=== PATIENT | female | born 1940 | race Two or more races ===

== ENCOUNTER 2024-08-28 20:38 | Emergency (ER) | payer MEDICARE, MEDICAID, SELFPAY ==
[2024-08-28 20:59] VITALS: BP 119/67; PULSE 70; RESP 20; TEMP 36.6; O2SAT 97
--- NOTE | 2024-08-28 20:59 | EKG_ITS ---
[facility] Test Date: 2024-08-28 Pat Name: SAUD COPELAND Department: Room: - Gender: Female Complaint Evaluation Supervisor: : 1940 Requested By: ED Temporary Provider Order Number: [id number] Reading MD: ED Temporary Provider Measurements Intervals [place] Rate: 68 P: 50 WI: 177 QRS: -64 QRSD: 156 T: 84 QT: 431 QTc: 458 Interpretive Statements ELECTRONIC VENTRICULAR PACEMAKER ABNORMAL RHYTHM ECG No previous ECG available for comparison /store/S0/[id number].pdf
--- NOTE | 2024-08-28 21:22 | XR_ITS ---
Examination: PA chest single view TECHNIQUE: Upright PA chest single view Date and time: August 28, 2024 2158 hours INDICATIONS: Altered mental status dizziness today. FINDINGS: Mild prominence of ventricle Cardiac leads satisfactory position. No pneumonia or pulmonary edema IMPRESSION: No active disease.
--- NOTE | 2024-08-28 21:22 | XR_ITS ---
Examination: CT brain head without contrast. 2-D sagittal coronal reconstructions Date and time of exam:August 28, 2024 1016 hours Comparison June 28, 2022 INDICATIONS: Headaches beginning 2 days ago CTDI: vol (mGy):46.8 DLP: (mGycm):880 Technique: Multiple CT axial sections of the brain have been obtained, 5 mm slice thickness. Contrast has not been administered. 2-D sagittal, coronal reconstructions have been obtained Low dose protocols were performed. One or more of the following dose reduction techniques were used; automated exposure control, adjustment of the mA and/or KV according to patient size, use of iterative reconstruction technique. Findings: No significant ventricular enlargement. Intra-axial or extra-axial hemorrhage density is not seen. No mass effect or midline shift Basal cisterns are not remarkable. Fourth ventricle is midline. Cranial vault intact. Impression: Negative for acute hemorrhage, mass effect or midline shift Pansinusitis, including acute right maxillary sinusitis
--- NOTE | 2024-08-28 21:33 | PD.EDHA ---
ED Headache RME/HPI General Chief Complaint: Headache Stated Complaint: HEADACHE, CONFUSED Time Seen by Provider: 08/28/24 21:22 Arrival date/time: 08/28/24 20:38 84F with history of pacemaker (doesn't know for what), DM, and dementia presents to ED with son for 2 days of PALOMO starting around the early evening time, unclear exactly when. Possible AMS, blurry vision, and dizziness. Also cough started today. Limitations: no limitations Related Data Previous Rx's ?Medication ?Instructions ?Recorded amoxicillin 875 mg-potassium 1 tab PO BID 7 days #14 tabs 08/28/24 clavulanate 125 mg tablet meclizine 25 mg tablet 25 mg PO BID PRN dizziness #14 tabs 08/28/24 Allergies Allergy/AdvReac Type Severity Reaction Status Date / Time No Known Allergies Allergy Verified 06/28/22 09:35 Review of Systems Review of Systems Systems Reviewed: All systems reviewed, normal except as documented Constitutional Constitutional: Reports system reviewed and no additional complaints, except as documented, Reports as per HPI, Denies fever(s) and Reports headache(s) Eyes Eyes: Reports as per HPI and Reports blurry vision ENT Ears, Nose, Mouth, and Throat: Reports as per HPI, Denies disequilibrium, Reports headache(s) and Reports vertigo Cardiovascular Cardiovascular: Reports system reviewed and no additional complaints, except as documented, Denies chest pain and Denies dyspnea Respiratory Respiratory: Reports system reviewed and no additional complaints, except as documented, Reports as per HPI, Reports cough and Denies dyspnea Gastrointestinal Gastrointestinal: Reports system reviewed and no additional complaints, except as documented, Denies abdominal pain, Denies nausea and Denies vomiting Neurologic Neurologic: Reports system reviewed and no additional complaints, except as documented, Denies confusion, Denies disequilibrium, Reports headache(s) and Reports vertigo Psychiatric Psychiatric: Denies confusion Past Medical History Social History SMOKING STATUS: Never smoker ED Exam General Limitations: Present no limitations General appearance: Present alert and in no apparent distress Head Head exam: Present atraumatic Eye Eye exam: Present normal appearance, PERRL and EOMI ENT ENT exam: Present normal exam, normal oropharynx and mucous membranes moist Neck Neck exam: Present normal inspection, full ROM and trachea midline Chest Chest inspection: Present normal inspection and symmetric chest wall rise Respiratory Respiratory exam: Present normal lung sounds bilaterally Cardiovascular Cardiovascular exam: Present regular rate, normal rhythm and normal heart sounds Abdominal Exam Abdominal exam: Present soft and normal bowel sounds Extremities Exam Extremities exam: Present normal inspection and full ROM Back Exam Back exam: Present normal inspection and full ROM Neurological Exam Neurological exam: Present alert, oriented X3 and CN II-XII intact Psychiatric Psychiatric exam: Present normal affect and normal mood Skin Skin exam: Present warm, dry, intact and normal color Course Quality Measures none Orders Category Date Time Status EKG (ED ONLY) *Do not use* NOW Care 08/28/24 20:59 Completed Fingerstick [Bedside Blood Glucose] NOW Care 08/28/24 20:[address] head/brain wo con Stat Exams 08/28/24 21:22 Completed EKG (ED Only) Stat Exams 08/28/24 20:59 Draft EKG (ED Only) Urgent Exams 08/28/24 20:59 Ordered XR chest 1V portable Stat Exams 08/28/24 21:22 Completed B-Type Natriuretic Peptide Stat Lab 08/28/24 21:42 Completed CBC Stat Lab 08/28/24 21:42 Completed Comprehensive Metabolic Panel Stat Lab 08/28/24 21:42 Completed Drug Screen,Urine Stat Lab 08/28/24 21:29 Completed Magnesium Stat Lab 08/28/24 21:42 Completed Partial Thromboplastin Time Stat Lab 08/28/24 21:42 Completed Prothrombin Time with INR Stat Lab 08/28/24 21:42 Completed Troponin I Stat Lab 08/28/24 21:42 Completed Urinalysis Stat Lab 08/28/24 21:29 Completed Amoxicillin/Pot Clav 875 [Augmentin 875] Med 08/28/24 23:50 Discontinued 1 tab PO X1 ONE Meclizine HCl [Antivert] Med 08/28/24 21:22 Discontinued 25 mg PO X1 ONE Vital Signs Vital signs: Vital Signs Temperature 98 F 08/28/24 20:59 Pulse Rate 70 08/28/24 20:59 Respiratory Rate 20 08/28/24 20:59 Blood Pressure 119/67 08/28/24 20:59 Pulse Oximetry (%) 97 08/28/24 20:59 Oxygen Delivery Method Room Air 08/28/24 20:59 O2 at 97% on RA and WNLs Headache MDM Narrative MDM Narrative:: 84F with history of pacemaker (doesn't know for what), DM, and dementia presents to ED with son for 2 days of PALOMO starting around the early evening time, unclear exactly when. Possible AMS, blurry vision, and dizziness. Also cough started today. Physical exam reveals normal pupil response and EOM. CN II-XII grossly intact. Gait normal. Pronator test negative. Normal WOB. Speech normal. Patient is afebrile, calm, and alert. EKG is paced. BS is 187. CXR normal. Normal trop. No leukocytosis. CMP unremarkable. CT reveals pansinusitis. Meds and counseling center manager given. Meclizine improved dizziness. Patient data External records reviewed:: [facility] previous records Clinical information provided by:: patient and family Social determinants that could affect healthcare access:: none Patient has the following chronic illnesses:: history of pacemaker (doesn't know for what), DM, and dementia How is presenting disease/condition affected by chronic disease/condition?: exacerbated by Evaluation data The following diagnostics were reviewed and interpreted by me:: lab results, radiology exam(s) and EKG tracing(s) Lab and/or radiology exams considered but not ordered:: ordered Interpretation Summary: above Medications / Prescriptions Medications or Prescriptions considered but not ordered:: ordered Medication administrations:: Medication Administration History Discontinued Medications Amoxicillin/Clavulanate Potassium (Amoxicillin/Pot Clav 875 Tablet) 1 tab PO X1 ONE Stop: 08/28/24 23:51 Last Admin: 08/28/24 23:58 Dose: 1 tab Documented By: ROXANA Meclizine HCl (Meclizine Hcl 25 Mg Tablet) 25 mg PO X1 ONE Stop: 08/28/24 21:23 Last Admin: 08/28/24 22:20 Dose: 25 mg Documented By: ROXANA above Consultations Consultation(s) initiated? (list below): No Diagnosis Differential diagnosis headache: migraine, tension headache, subarachnoid hemorrhage, headache, meningitis, sinusitis and postconcussion syndrome Most likely diagnosis given after review of the tests above:: sinusitis Admission Indicated Admission indicated?: not indicated Admission Request Was there a request for admission?: No Disposition Plan Disposition Plan: Discharge Discharge Attestation Discharge Attestation: The patient and all family members were given an opportunity to ask questions and understood the discharge instructions. Discharge instructions specifically effects, indications for sooner follow up or return to the emergency department, and the expected course of current diagnosis. Patient condition: Stable Discharge Plan Plan Patient Disposition: HOME (Self Care) Discharge Disposition comment: Stable Prescriptions/Referrals Prescriptions/Med Rec: New amoxicillin-pot clavulanate 875-125 mg tablet 1 tab PO BID 7 Days Qty: 14 0RF meclizine 25 mg tablet 25 mg PO BID PRN (Reason: dizziness) Qty: 14 0RF Referrals: Mook Mathews [Primary Care Provider] - In 1 week Problem List Clinical Impression: Sinusitis Patient/Caregiver Discharge Instructions Education Materials: ED Sinusitis (Antibiotic Treatment) Additional Instructions: Please follow-up with PCP within 24-48 hours and return immediately if symptoms worsen. Print Language: Kittitian Stand Alone Forms: Patient Portal Info Letter PA/ELECTRIC MOTOR AND GENERATOR ASSEMBLER Supervising Physician JOSH/SITA Supervising Physician: Dr. Shea
[2024-08-28 21:59] LABS: Collection Type, Urine Clean Catch
[2024-08-28 21:59] LABS: Basophils # (Auto) 0.0 Thou/mm3 (0.0-0.2); Eosinophils # (Auto) 0.2 Thou/mm3 (0.0-0.5); Eosinophils % (Auto) 4 % (0-10); Lymphocytes % (Auto) 34 % (10-50); Mean Corpuscular Volume 94 fL (80-100); Monocytes # (Auto) 0.5 Thou/mm3 (0.0-0.8); Monocytes % (Auto) 10 % (0-12); Neutrophils # (Auto) 2.5 Thou/mm3 (1.8-7.7); Nucleated Red Blood Cell # 0.00 Thou/mm3 (0.00-0.00); Nucleated Red Blood Cell % 0 /100 WBC (0)
[2024-08-28 22:01] LABS: Basophils % (Auto) 0 % (0-2.5); Hematocrit 35.3 % (36.0-46.0); Hemoglobin 11.6 g/dL (12.0-16.0); Immature Granulocytes Auto 0.00 Thou/mm3 (0.00-0.00); Lymphocytes # (Auto) 1.6 Thou/mm3 (1.0-4.8); Mean Corpuscular HGB Conc 32.9 g/dl (31.0-37.0); Mean Corpuscular Hemoglobin 30.9 pg (25.0-35.0); Neutrophils % (Auto) 52 % (37-80); Platelet Count 89 Thou/mm3 (140-440); RDW Standard Deviation 46.8 fL (36.4-46.3); Red Blood Count 3.75 Miln/mm3 (4.00-5.20); White Blood Count 4.8 Thou/mm3 (3.6-11.0)
[2024-08-28 22:19] LABS: Bacteria,Urine Rare; Bilirubin,Urine Negative (Negative); Blood,Urine Negative (Negative); Clarity,Urine Clear (Clear/Hazy); Color,Urine Lt-Yellow (Lt Yel-Yel); Glucose, Urine Negative (Negative); Ketones,Urine Negative (Negative); Leukocyte Esterase,Urine Positive (Negative); Nitrite,Urine Negative (Negative); PH,Urine 6.0 (5.0-7.0); Protein,Urine Negative (Neg - Trace); RBC,Urine 2 /hpf (0-3); Specific Gravity,Urine 1.024 (1.001-1.035); Squamous Epithelial Cell,Urine 5 /hpf (0-5); Urobilinogen,Urine Negative mg/dL (0.0-1.0); WBC,Urine 10 /hpf (0-5)
[2024-08-28 22:19] LABS: INR 1.1 (0.9-1.3); Partial Thromboplastin Time 30.8 Seconds (22.0-36.0); Prothrombin Time 11.7 Seconds (9.0-12.2)
[2024-08-28] MEDS: MECLIZINE HCL 25 MG TABLET PO (22:20)
[2024-08-28 22:22] LABS: B-Type Natriuretic Peptide 64 pg/mL (0-100)
[2024-08-28 22:25] LABS: Alanine Aminotransferase 21 U/L (10-49); Albumin, Serum 4.1 gm/dL (3.4-4.8); Albumin/Globulin Ratio 1.7 (1.2-2.2); Alkaline Phosphatase 81 U/L (46-116); Anion Gap 7 (7-16); Aspartate Amino Transferase 35 U/L (0-34); BUN/Creatinine Ratio 22 Ratio (12-20); Bilirubin,Total 0.5 mg/dL (0.3-1.2); Blood Urea Nitrogen 29 mg/dL (9-23); Calcium 8.7 mg/dL (8.3-10.6); Calcium (Corrected) 8.7 mg/dL (8.5-10.1); Carbon Dioxide 30.7 mMol/L (20.0-31.0); Chloride 102 mMol/L (98-107); Creatinine (Component) 1.3 mg/dL (0.6-1.3); Globulin 2.4 gm/dL (2.3-3.5); Glucose 184 mg/dL (74-106); Magnesium 1.8 mg/dL (1.6-2.6); Osmolality,Calculated 290 (275-295); Potassium 4.7 mMol/L (3.4-5.1); Sodium 140 mMol/L (136-145); Total Protein 6.5 gm/dL (5.7-8.2); Troponin I < 0.020 ng/mL (0.0-0.045); eGFR 41 See Note
[2024-08-28 22:28] LABS: Amphetamine/Methamp Scrn,U Negative (Negative); Barbiturate Screen,Urine Negative (Negative); Benzodiazepines Screen,Urine Negative (Negative); Benzoylecgonine Screen, Ur Negative (Negative); Fentanyl Screen,Urine Negative (Negative); Opiate Screen,Urine Negative (Negative); THC Screen,Urine Negative (Negative)
[2024-08-28 23:27] VITALS: BP 139/68; PULSE 64; RESP 18; TEMP 36.6; O2SAT 98
[2024-08-28] MEDS: AMOXICILLIN/POT CLAV 875 TABLET 1 TAB PO (23:58)
[2024-08-29] VITALS: RESP 16
== END 2024-08-29 00:01 | disposition home or self-care (01) ==
PROVIDERS: Physician Assistant; Emergency Provider Emergency Medicine; PCP Internal Medicine
DX: J32.4 Chronic pansinusitis (principal); R94.31 Abnormal electrocardiogram [ECG] [EKG]; J01.00 Acute maxillary sinusitis, unspecified; R42 Dizziness and giddiness; Z95.0 Presence of cardiac pacemaker; E11.9 Type 2 diabetes mellitus without complications; F03.90 Unspecified dementia, unspecified severity, without behavioral disturbance, psychotic disturbance, mood disturbance, and anxiety
CPT/HCPCS: 36415; 70450; 71045; 80053; 80307; 81001; 83735; 83880; 84484; 85025; 85610; 85730; 93005; 99284; A9270

== ENCOUNTER 2024-12-29 12:06 | Emergency (ER) | payer MEDICARE, MEDICAID, SELFPAY ==
[2024-12-29 12:56] VITALS: BP 132/72; PULSE 74; RESP 18; TEMP 36.6; O2SAT 95; BMI 27.8
--- NOTE | 2024-12-29 13:06 | PD.EDFALL ---
ED Fall Injury RME/HPI General Chief Complaint: Fall Stated Complaint: R RIB PAIN AND HEAD PAIN POST FALL Time Seen by Provider: 12/29/24 13:06 Arrival date/time: 12/29/24 12:06 RME / HPI RME / HPI Narrative: 84-year-old female who does not take blood thinners, however does have missing teeth, dementia, at her cognitive baseline, is complaining of mild headache, laceration to her left forehead and right sided rib pain after a ground-level trip and fall over a side. Denies any vomiting, loss of consciousness, dizziness, shortness of breath, vomiting. Related Data Previous Rx's ?Medication ?Instructions ?Recorded meclizine 25 mg tablet 25 mg PO BID PRN dizziness #14 tabs 08/28/24 Allergies Allergy/AdvReac Type Severity Reaction Status Date / Time No Known Allergies Allergy Verified 12/29/24 12:10 ED Exam Narrative Physical exam: Constitutional: Patient alert, oriented, in no acute distress. Head/Face: Normocephalic, atraumatic. Scalp atraumatic. No hematomas or step-offs. Face symmetric. No midface instability. No raccoon eyes bilaterally. No love signs bilaterally. Eyes: Conjunctiva clear bilaterally. Sclera anicteric bilaterally. Pupils equal, round, and reactive to light bilaterally. Extraocular movements intact bilaterally. No hyphema. Ears: External ears normal. TMs grossly intact. No hemotympanum bilaterally. No otorrhea. No mastoid tenderness. Nose: Septum midline. No rhinorrhea.No septal hematoma. Mouth/Throat: Oropharynx clear. Moist mucous membranes. Uvula midline. No tonsillar edema or exudate. No peritonsillar fullness. No trismus. Handling secretions without difficulty. No stridor. Missing teeth. Neck: Trachea midline. Supple. No JVD. No midline tenderness or step-offs. No nuchal rigidity. Chest: Symmetric chest rise. Breath sounds equal bilaterally. Positive tenderness to right ribs at the posterior axillary line. No deformity, or crepitus. Cardiovascular: RRR. Normal S1/S2. No murmurs or rubs. Radial pulses intact bilaterally. Abdomen: Soft. Non-distended. Non-tender throughout. No pulsatile mass. No rebound or guarding. Pelvis: Stable and non-tender to compression. No deformity. Back: No CVA tenderness bilaterally. No midline spinal tenderness. No step-offs. Upper Extremities: No gross deformities. No focal motor or sensory deficits bilaterally. Lower Extremities: No gross deformities. No focal motor or sensory deficits bilaterally. Neuro: Alert and oriented. Speech normal. CN II?XII grossly intact. GCS 15. Skin: Warm, dry, normal color. +1 cm superficial abrasion noted to left forehead well-approximated. Course Quality Measures none Orders Category Date Time Status Incentive Spirometry Treatment NOW Care 12/29/24 16:42 Active Wound Care NOW Care 12/29/24 16:[address] cervical spine wo con Stat Exams 12/29/24 13:[address] head/brain wo con Stat Exams 12/29/24 13:07 Completed XR ribs RT min 3V w CXR1V Stat Exams 12/29/24 13:07 Completed Lidocaine 5% Patch Med 12/29/24 16:44 Discontinued 1 patch TOP X1 ONE TET,DIP/PERT AC (Adult)-Tdap [Boostrix Adult (Tdap) Med 12/29/24 16:43 Discontinued Vacc] 0.5 ml IMI .ONCE ONE Vital Signs Vital signs: Vital Signs Temperature 97.9 F 12/29/24 12:56 Pulse Rate 74 12/29/24 12:56 Respiratory Rate 18 12/29/24 12:56 Blood Pressure 132/72 H 12/29/24 12:56 Pulse Oximetry (%) 95 12/29/24 12:56 Oxygen Delivery Method Room Air 12/29/24 12:56 Fall MDM Narrative MDM Narrative:: MDM This patient sustained a fall that appears to be primarily mechanical in nature and not due to a serious acute medical condition. Other than what is mentioned in the diagnosis, no serious injury has been identified. Neuro exam is non-focal. Doubt acute nerve root syndrome, acute cord syndrome, intracranial hemorrhage, or cervical spine fracture/subluxation. Patient remains neurologically intact without focal deficit. CT brain and C spine without acute intracranial abn f/x or dislocation Concern for soft tissue injury (contusion, strain, or sprain) however can not exclude occult f/x or dislocation of ribs. CXR without gross fx or dislocation or acute cardiopulmonary abn or PTX. Plan for incentive spirometer Thorough head-to-toe primary and secondary surveys have been performed, and the patient is felt to be at very low risk for delayed serious injury. The patient has been instructed to return immediately for new or unexpected symptoms. Symptomatic treatment provided and follow-up with PMD in 1?2 days recommended. Strict ER return precautions advised. A discussion was held regarding home safety measures and the importance of arranging further evaluation with the patient?s primary care provider in the near future to reduce fall risk. The patient has demonstrated the ability to ambulate safely since the initial fall. Concern for abrasion vs superficial laceration which now has a scab on it, they are declining wound irrigation or repair with dermabond at this time however it is well approximated, plan for continued wound care prn, plan to update tdap Patient data External records reviewed:: [facility] previous records Clinical information provided by:: patient and family Social determinants that could affect healthcare access:: none Patient has the following chronic illnesses:: As noted How is presenting disease/condition affected by chronic disease/condition?: no chronic disease Evaluation data The following diagnostics were reviewed and interpreted by me:: radiology exam(s) Lab and/or radiology exams considered but not ordered:: Additional Labs and radiology considered, but not ordered as they were not clinically indicated at this time. Interpretation Summary: No acute traumatic abnormality Medications / Prescriptions Medications or Prescriptions considered but not ordered:: I considered prescription management (both outpatient prescriptions AND drug treatment in the ER) and decided that this was necessary and was prescribed as charted. Medication administrations:: Medication Administration History Discontinued Medications Diphtheria/Tetanus/Acell Pertussis (Diphth,Pertuss(Acell),Tet Vac 0.5 Ml Syr- Adult) 0.5 ml IMi .ONCE ONE Stop: 12/29/24 16:44 Lidocaine (Lidocaine 5% 1 Patch) 1 patch TOP X1 ONE Stop: 12/29/24 16:45 As noted Consultations Consultation(s) initiated? (list below): No Diagnosis Fall Differential Diagnosis: concussion without loss of consciousness Most likely diagnosis given after review of the tests above:: Concussion without loss of consciousness complicated by rib contusion Admission Indicated Admission indicated?: not indicated Admission Request Was there a request for admission?: No Disposition Plan Disposition Plan: Discharge Discharge Attestation Discharge Attestation: The patient and all family members were given an opportunity to ask questions and understood the discharge instructions. Discharge instructions specifically effects, indications for sooner follow up or return to the emergency department, and the expected course of current diagnosis. Patient condition: Stable Discharge Plan Prescriptions/Referrals Prescriptions/Med Rec: No Action meclizine 25 mg tablet 25 mg PO BID PRN (Reason: dizziness) Qty: 14 0RF Referrals: Mook Mathews [Primary Care Provider, Medical] - In 1 week Problem List Clinical Impression: Contusion of rib, Head injury, Fall Patient/Caregiver Discharge Instructions Education Materials: Preventing Falls Moving Safely ..., ED Head Injury (Adult), ED Contusion, Rib Additional Instructions: Follow up with your primary medical doctor within 24 hours. Return to the Emergency Room immediately for any new, worsening, continuing symptoms or any concerns at all. Return to the Emergency Room within 24 hours if you are unable to follow up with your primary medical doctor within 24 hours. Print Language: [place] PA/SITA Supervising Physician PA/SITA Supervising Physician: Dr. Lee
--- NOTE | 2024-12-29 13:07 | XR_ITS ---
Examination: CT cervical spine without contrast 2-D sagittal reconstructions 2-D coronal reconstructions 3-D reconstructions. Exam date and time: December 29, 2024, 1359 hours, comparison June 28, 2022. INDICATIONS: Ground-level fall today with injury to the neck, neck pain CTDI:vol (mGy) 13.9 DLP: (mGycm) 259 Technique: Multiple 2 mm axial sections of the cervical spine have been obtained. The coronal and sagittal reconstructions have been obtained. 3-D reconstructions have been obtained. Low dose protocols were performed. One or more of the following dose reduction techniques were used; automated exposure control, adjustment of the mA and/or KV according to patient size, use of iterative reconstruction technique. Findings: Axial sections demonstrate intact base of the skull. C1 exhibit satisfactory relationship to the odontoid. No acute cervical vertebral body fracture seen. Alignment posterior spinous processes satisfactory. Moderate to advanced degenerative disc disease C5-C6, C6-C7 Impression: No acute cervical fracture.
--- NOTE | 2024-12-29 13:07 | XR_ITS ---
Examination: CT brain head without contrast. 2-D sagittal coronal reconstructions Date and time of exam: December 29, 2024, 1359 hours INDICATIONS: Ground-level fall with injury to the left side of the head today, head pain CTDI: vol (mGy): 46.8 DLP: (mGycm): 895 Technique: Multiple CT axial sections of the brain have been obtained, 5 mm slice thickness. Contrast has not been administered. 2-D sagittal, coronal reconstructions have been obtained Low dose protocols were performed. One or more of the following dose reduction techniques were used; automated exposure control, adjustment of the mA and/or KV according to patient size, use of iterative reconstruction technique. Findings: No significant ventricular enlargement. Intra-axial or extra-axial hemorrhage density is not seen. No mass effect or midline shift Basal cisterns are not remarkable. Fourth ventricle is midline. Cranial vault intact. Pansinusitis including acute right maxillary sinusitis Impression: Negative for acute hemorrhage, mass effect or midline shift
--- NOTE | 2024-12-29 13:07 | XR_ITS ---
Examination: Ribs, right, with PA chest, 5 views Technique: Chest PA, RIBS AP, RPO, LPO, AP coned lower ribs 5 views Exam date and time: December 29, 2024, 1415 hours, comparison August 28, 2024 INDICATIONS: Injury to the right ribs today, right chest and rib pain Findings: Mild enlargement cardiac contour Transvenous dual-chamber backordered cardiac leads satisfactory position No pneumothorax Orthopedic screws right humeral head Moderate osteopenia Advanced osteoarthritis glenohumeral joint No acute rib fractures IMPRESSION: No pneumothorax pulmonary contusion or hemothorax No acute rib fractures
== END 2024-12-29 17:29 | disposition home or self-care (01) ==
PROVIDERS: Emergency Provider Family Medicine; PCP Internal Medicine
DX: S20.219A Contusion of unspecified front wall of thorax, initial encounter (principal); S00.93XA Contusion of unspecified part of head, initial encounter; W01.0XXA Fall on same level from slipping, tripping and stumbling without subsequent striking against object, initial encounter
CPT/HCPCS: 70450; 71101; 72125; 99282